=== PATIENT | female | born 1980 | race Caucasian/White ===

== ENCOUNTER 2020-09-10 17:21 | Emergency (ER) | payer OTHER, SELFPAY ==
[2020-09-10 17:29] VITALS: BP 138/80; PULSE 85; O2SAT 97
--- NOTE | 2020-09-10 17:49 | ECG_ITS ---
Test Reason : PAPLIPITATIONS Blood Pressure : / mmHG Vent. Rate : 079 BPM Atrial Rate : 079 BPM P-R Int : 120 ms QRS Dur : 100 ms QT Int : 712 ms P-R-T Axes : 063 029 -44 degrees QTc Int : 816 ms Normal sinus rhythm Possible Inferior infarct , age undetermined ST & T wave abnormality, consider lateral ischemia Abnormal ECG No previous ECGs available Referred By: Layla Keller Electronically Signed By:Zelalem Contreras
--- NOTE | 2020-09-10 18:37 | ED.ARRPALP ---
HPI - Arrhythmia/Palpitations General Chief Complaint: General Medical Stated Complaint: palpitations Time Seen by Provider: 09/10/20 18:16 History of Present Illness HPI narrative: Patient's 39 years old. Was driving home after gym. Presented today with having palpitation. Heart racing. Seems like the heart was going fast but regular. Patient denies any diaphoresis. Lasted for about 10-15 minutes. Patient presented to the emergency department. There is no pain at this time. No recreational drug use. No alcohol. No history of similar symptoms. Patient does have a lot of stressors in life. Denies any coughing congestion upper respiratory symptoms. The symptom has since resolved. Related Data Allergies Allergy/AdvReac Type Severity Reaction Status Date / Time No Known Allergies Allergy Verified 09/10/20 20:55 Review of Systems Review of Systems: Constitutional: No Weight loss, No Fever, No Chills, No Night Sweats, No Fatigue, No Malaise ENT/Mouth: No Hearing loss, No Ear Pain, No Nasal Congestion, No Sinus Pain, No Hoarseness, No sore throat, No Rhinorrhea, No Swallowing Difficulty Eyes: No Eye Pain, No Swelling, No Redness, No Foreign Body, No Discharge, No Vision Changes Cardiovascular: No Chest Pain, No SOB, No Dyspnea on Exertion, No Orthopnea, No Edema, positive Palpitations Respiratory: No Cough, No Sputum, No Wheezing, No Smoke Exposure, No Dyspnea Gastrointestinal: No Nausea, No Vomiting, No Diarrhea, No Constipation, No abdominal Pain, No Hematochezia, No Melena Genitourinary: no irregular bleeding, No Dysuria, No Urinary Frequency, No Hematuria, No Urinary Incontinence, No Urgency, No Flank Pain, No Urinary Flow Changes, No Hesitancy Musculoskeletal: No joint pain, No Myalgias, No Joint Swelling Skin: No Skin Lesions, No rash Neuro: No Weakness, No Numbness, No Paresthesias, No Loss of Consciousness, No Dizziness, No Headache Psych: No Anxiety/Panic, No Depression, No SI/HI/AH/VH, No Social Issues, Heme/Lymph: No Bruising, No Bleeding,No Lymphadenopathy Endocrine: No Polyuria, No Polydipsia, No Temperature Intolerance PMFSH Past Medical History Attestation statement: The following information was validated with the patient. Medical History (Updated 09/10/20 @ 23:03 by Layla Keller MD) HTN (hypertension) Social History Social History Advance Directives: No Physical Exam Vital Signs: Vital Signs: Last Vital Signs Temp 99.0 F 09/10/20 20:55 Pulse 68 09/10/20 20:55 Resp 18 09/10/20 20:55 BP 153/86 H 09/10/20 20:55 Pulse Ox 99 09/10/20 20:55 Body Mass Index 22.9 Appearance: Alert. Oriented X3. No acute distress. Eyes: Pupils equal, round and reactive to light. ENT: Pharynx normal. Neck: Normal inspection. Neck supple. No lymph nodes noted. No crepitus CVS: Normal heart rate and rhythm. Pulses normal. Normal S1 and S2 Respiratory: No respiratory distress. Breath sounds normal. No Wheezing. No rales Abdomen: Soft and nontender. No rigidity. No distention. good BS x4 Skin: Skin warm and dry. Normal skin color. Normal skin turgor. Extremities: No lower extremity edema. Neurovascular intact to all extremities. No Lacerations. No Rash Neuro: Oriented X 3. No motor deficit. No sensory deficit. Moving all extermities. No slurred speech MDM - Arrhythmia/Palpitations MDM Narrative Medical decision making narrative: Well-appearing no acute distress. Patient's symptom has resolved. Question secondary to anxiety. Patient does have a lot of stressors in life. Denies any recreational drug use. Denies any chest pain during this episode. It was fast and regular cannot rule out the possibility of SVT. Labs are pending will most likely refer patient to cardiology on outpatient basis. Patient's electrolyte consistent with having dehydration. Patient's potassium is 2.9. Will have patient replete on an outpatient basis by diet. Patient's magnesium is 1.5 repletion by diet. Will also have patient follow-up with her primary physician for having an elevated sugar. Patient did not drink large amount of sugar prior to arrival. Will need close observation if patient have diabetes. In stable condition. Will also need follow-up with Cardiology. Differential Diagnosis Differential diagnosis: Likely palpitations Medical Records Attestation: I reviewed the patient's medical records. Lab Data Result diagrams: 09/10/20 18:32 Labs: Lab Results 09/10/20 09/10/20 09/10/20 Range/Units 18:32 18:32 18:32 Sodium 138 (135-145) mmol/L Potassium 2.9 L (3.3-5.1) mmol/L Chloride 93 L (96-108) mmol/L Carbon Dioxide 31 H (22-29) mmol/L Anion Gap 17 (12-20) BUN 23 H (9-16) mg/dL Creatinine 0.97 (0.5-1.4) mg/dL Estim Creat Clear Calc TNP Estimated GFR > 60 Random Glucose 163 H (60-115) mg/dL Calcium 8.9 (8.4-10.2) mg/dL Magnesium 1.5 L (1.6-2.6) mg/dL Troponin I High Sens 6.1 (<3.5-17.0) ng/L TSH 3.33 (0.32-4.0) uIU/mL Urine Color YELLOW Urine Appearance CLEAR Urine pH 6.5 (5.0-8.0) Ur Specific [place] 1.020 (1.005-1.025) Urine Protein NEG (NEG-TRACE) MG/DL Urine Glucose (UA) NEG (NEG) MG/DL Urine Ketones 5 (NEG) MG/DL Urine Blood NEG (NEG) Urine Nitrite NEG (NEG) Ur Leukocyte Esterase NEG (NEG) Urine Test (NEGATIVE) Urine Opiates Screen (Not Detect) Ur Barbiturates Screen (Not Detect) Ur Phencyclidine Scrn (Not Detect) Ur Amphetamines Screen (Not Detect) U Benzodiazepines Scrn (Not Detect) Urine Cocaine Screen (Not Detect) U Marijuana (THC) Screen (Not Detect) 09/10/20 09/10/20 Range/Units 18:32 18:32 Sodium (135-145) mmol/L Potassium (3.3-5.1) mmol/L Chloride (96-108) mmol/L Carbon Dioxide (22-29) mmol/L Anion Gap (12-20) BUN (9-16) mg/dL Creatinine (0.5-1.4) mg/dL Estim Creat Clear Calc Estimated GFR Random Glucose (60-115) mg/dL Calcium (8.4-10.2) mg/dL Magnesium (1.6-2.6) mg/dL Troponin I High Sens (<3.5-17.0) ng/L TSH (0.32-4.0) uIU/mL Urine Color Urine Appearance Urine pH (5.0-8.0) Ur Specific [place] (1.005-1.025) Urine Protein (NEG-TRACE) MG/DL Urine Glucose (UA) (NEG) MG/DL Urine Ketones (NEG) MG/DL Urine Blood (NEG) Urine Nitrite (NEG) Ur Leukocyte Esterase (NEG) Urine Test NEGATIVE (NEGATIVE) Urine Opiates Screen Not Detected (Not Detect) Ur Barbiturates Screen Not Detected (Not Detect) Ur Phencyclidine Scrn Not Detected (Not Detect) Ur Amphetamines Screen Not Detected (Not Detect) U Benzodiazepines Scrn Not Detected (Not Detect) Urine Cocaine Screen Not Detected (Not Detect) U Marijuana (THC) Screen Not Detected (Not Detect) ECG Data Interpretation: Sinus heart rate is 80 VA QRS QT within normal limits there is T-wave inversion over the lateral leads. Discharge Plan Discharge Clinical Impression: Hyperglycemia, Hypokalemia Patient Disposition: Home, Self-Care Instructions: Nondiabetic Hyperglycemia (ED), Hypokalemia (ED), Heart Palpitations (ED) Referrals: Zeinab Khan MD [Primary Care Provider] - 2 days Zelalem Contreras MD [Physician] - 2 days
[2020-09-10 18:45] LABS: Glucose Urine UA NEG (NEG); Leukocyte Esterase Urine NEG (NEG); Nitrite Urine NEG (NEG); PH 6.5 (5.0-8.0); Urine Blood NEG (NEG); Urine Ketones 5 MG/DL (NEG); Urine Protein NEG (NEG-TRACE)
[2020-09-10 18:46] LABS: Appearance Urine CLEAR; Color Urine YELLOW
[2020-09-10 18:49] LABS: UPreg QC Valid YES; Urine Pregnancy NEGATIVE (NEGATIVE)
[2020-09-10 19:09] LABS: Troponin-I High Sensitivity 6.1 ng/L (<3.5-17.0)
[2020-09-10 19:13] LABS: Amphetamine Screen Urine Not Detected (Not Detect); Barbiturates, Urine Not Detected (Not Detect); Benzodiazepines Screen Urine Not Detected (Not Detect); Cannabinoid Screen Urine Not Detected (Not Detect); Cocaine Screen Urine Not Detected (Not Detect); Opiate Screen Urine Not Detected (Not Detect); Phencyclidine Screen Urine Not Detected (Not Detect)
[2020-09-10 19:16] LABS: Anion Gap 17 (12-20); Blood Urea Nitrogen 23 mg/dL (9-16); Calcium 8.9 mg/dL (8.4-10.2); Carbon Dioxide 31 mmol/L (22-29); Chloride 93 mmol/L (96-108); Estimated Glomerular Filt Rate > 60; Glucose Random 163 mg/dL (60-115); Magnesium 1.5 mg/dL (1.6-2.6); Potassium 2.9 mmol/L (3.3-5.1); Sodium 138 mmol/L (135-145)
[2020-09-10 19:25] LABS: TSH reflex Free T4 3.33 uIU/mL (0.32-4.0)
[2020-09-10 20:55] VITALS: BP 153/86; PULSE 68; RESP 18; TEMP 37.2; O2SAT 99; BMI 22.9
[2020-09-10 23:15] VITALS: BP 146/93; PULSE 57; RESP 16; O2SAT 100
== END 2020-09-11 00:14 | disposition home or self-care (01) ==
PROVIDERS: Emergency Provider Emergency Medicine Emergency Medical Services; PCP Family Medicine
DX: R00.2 Palpitations (principal); R73.9 Hyperglycemia, unspecified; E87.6 Hypokalemia; I10 Essential (primary) hypertension
CPT/HCPCS: 36415; 80048; 80307; 81003; 81025; 83735; 84443; 84484; 93005; 99283

== ENCOUNTER → 2020-09-26 10:32 | Outpatient (BNVA) | payer OTHER, SELFPAY | PROVIDERS: PCP Family Medicine; Visit Provider Nurse Practitioner Family | DX: R00.2 Palpitations (principal); R94.31 Abnormal electrocardiogram [ECG] [EKG]; E87.6 Hypokalemia; E83.42 Hypomagnesemia | CPT/HCPCS: 99204; 93005 ==

== ENCOUNTER → 2020-10-08 07:37 | Outpatient (REF) | payer OTHER, SELFPAY ==
--- NOTE | 2020-10-08 07:44 | CA_ITS ---
Transthoracic Echocardiogram Patient (Last, First, Middle): Sonia Chavez, Gender: Female Date of : 1980 Age: 40 Procedure Date: 10/08/2020 Procedure Type: Transthoracic Echocardiogram Location: OP Height: 177.8 cm Weight: 70.31 kg BSA: 1.87 m2 Heart Rate: bpm BP: 110 / 72 mmHg Rehabilitation Case Coordinator: LALITHA Castillo MD: Columba Arias BARREL HEADER-Jose Antonio Mortar Carrier: Ethan Ye MD Symptoms: R94.31 - Abnormal electrocardiogram [ECG] [EKG] Study Quality: Good ECG Rhythm: Sinus Conclusions: - Normal study Findings Left Ventricle Normal left ventricular size, thickness, and systolic function. The visually estimated ejection fraction is between 60-65%. Diastolic function is normal for age. Right Ventricle Normal right ventricular cavity size and systolic function. Atria Both atria are normal in size. There is no evidence of interatrial shunt. Aortic Valve Normal aortic valve structure and function. There is no aortic valve stenosis. There is no aortic valve regurgitation. Mitral Valve Normal mitral valve structure and function. There is trace mitral valve regurgitation. There is no mitral valve stenosis. Pulmonic Valve The pulmonic valve is likely normal. Tricuspid Valve Normal tricuspid valve structure. There is trace tricuspid valve regurgitation. The right ventricular systolic pressure is normal. The right ventricular systolic pressure is 30 mmHg. Normal right atrial pressure. There is no evidence of pulmonary hypertension. Great Vessels All visible segments of the aorta are normal in size. The pulmonary artery was not well visualized. Venous The inferior vena cava is normal in size and collapses greater than 50% with inspiration. Pericardium/Pleural There is no evidence of pericardial effusion. Prior Study Comparison No prior study available for comparison. Measurements 2D Linear Measurements RVIDd: 2.71 RVIDd Index: 1.45 IVSd: 0.88 0.6-0.9/0.6-1.0 cm LVIDd: 5.18 3.9-5.3/4.2-5.9 cm LVIDd Index: 2.77 2.4-3.2/2.2-3.1 cm/m2 LVIDs: 3.79 2.0-3.6 cm LVPWd: 0.91 0.7-1.1 cm Ao Root: 2.70 2.1-3.5 cm LA Diam: 3.90 2.7-3.8/3.0-4.0 cm LAIDs Index: 2.09 1.5-2.3 cm/m2 LV Mass: 208.36 67-162/88-224 g LV Mass Index: 111.42 43-95/49-115 g/m2 LVOT Diam: 2.10 3.0+(-)1.3 cm 2D Systolic Function EF 4C: 49.70 >55% EF 2C: 74.50 >55% EF BiP: 64.80 >55% Mitral Valve MV Pk E: 0.87 MV PK A: 0.55 MV Decel Time: 186.00 E/A: 1.60 E'Lateral: 10.80 E'Medial: 8.81 E/E' Med: 9.90 E/E' Lat: 8.00 Aortic Valve AoV Pk Xiang: 1.33 AoV Mn Xiang: 1.01 AoV VTI: 0.32 AoV Pk Grad: 7.00 Aov Mn Grad: 5.00 KYLAH Cont.VTI: 2.12 LVOT LVOT Pk Xiang: 0.85 LVOT Mn Xiang: 0.54 LVOT VTI: 0.20 LVOT Pk Grad: 3.00 LVOT Mn Grad: 1.00 LVOT Diam: 2.10 LVOT Area: 3.46 Diastolic Function MV Pk E: 0.87 MV Pk A: 0.55 E/A: 1.60 E'Medial: 8.81 E/E' Med: 9.90 E' Laterial: 10.80 E/E' Lat: 8.00 Tricuspid Valve TR Pk Xiang: 2.59 TR Pk Grad: 27.00 RA Press: 3.00 RVSP: 30.00 Great Vessels Aorta Ao Root-2D: 2.70 2.0-3.7 cm Ao Asc: 2.90 2.1-3.4 cm Ao Arch: 2.50 Updated in Other Vendor System with Status of Final Ethan Ye MD electronically signed on 10/08/2020 4:59:43 PM with status of Final
== END ==
LOC: HO.CARD 07:37
PROVIDERS: PCP Family Medicine; Visit Provider Nurse Practitioner Family
DX: R00.2 Palpitations (principal); R94.31 Abnormal electrocardiogram [ECG] [EKG]
CPT/HCPCS: 93306

== ENCOUNTER → 2020-10-11 11:31 | Outpatient (BNVA) | payer OTHER, SELFPAY | PROVIDERS: PCP Family Medicine; Visit Provider Nurse Practitioner Family | DX: Z13.89 Encounter for screening for other disorder (principal) ==